=== PATIENT | female | born 1975 | race Caucasian/White ===

== ENCOUNTER 2017-04-26 01:19 | Inpatient (IN) | payer MEDICAID ==
[2017-04-26 01:52] LABS: % BASOPHILS 0.8 % (0.0-2.0); % EOSINOPHILS 1.2 % (0.0-5.0); % LYMPHOCYTES 28.5 % (20.0-50.0); % MONOCYTES 8.3 % (2.0-10.0); % NEUTROPHILS 61.2 % (40.0-80.0); HEMATOCRIT 40.7 % (35.0-45.0); HEMOGLOBIN 13.3 gm/dL (11.7-15.5); MEAN CELL VOLUME 89.2 fl (81-100); MEAN CORPUSCULAR HEMOGLOBIN 29.1 pg (27.0-31.0); MEAN CORPUSCULAR HGB CONC 32.6 pg (28.0-36.0); MEAN PLATELET VOLUME 8.8 fl; NEUTROPHILE ABSOLUTE 5.8 Th/cmm (1.8-8.0); PLATELET COUNT 247 Th/cmm (150-400); RED BLOOD COUNT 4.56 Mil/cmm (3.80-5.10); RED CELL DISTRIBUTION WIDTH 11.9 % (11.5-20.0); WHITE BLOOD COUNT 9.5 Th/cmm (4.8-10.8)
--- NOTE | 2017-04-26 01:57 | ED Physician Chart ---
Chief Complaint/HPI - Patient Information Date Seen:: 04/26/17 Time Seen:: 01:29 Chief Complaint:: palpatations History of Present Illness:: THIS IS A 41 YR OLD FEMALE WHO IS DIABETIC WITH HYPERTENSION AND RESTARTED HER MEDS YESTERDAY. SHE HAS NOT BEEN TAKING CARE OF HERSELF. SHE HAS HAD THIS PROBEMS BEFORE ABOUT FOUR YEARS AGO. SHE DENIES SMOKING, DRINKING AND DRUG ABUSE. SHE HAS BEEN TREATED WITH FLAGYL FOR HER DIARRHEA. THIS PATIENT ALSO HAS HIGH LIPIDS. Allergies:: Allergies Allergy/AdvReac Type Severity Reaction Status Date / Time No Known Allergies Allergy Verified 04/26/17 01:32 Vitals:: Vital Signs - 8 hr 04/26/17 01:20 Temp 97.9 F HR 114 RR 20 BP 98/62 O2 Sat % 100 Historian:: Patient, Family Member (SISTER) Review:: Nurse's Note Reviewed Review of Systems - Review of Systems General/Constitutional: Fever, No chills, Weight loss, No weakness, No diaphoresis, No edema, No loss of appetite Skin: No skin lesions, No rash, No bruising Head: No headache, No light-headedness Eyes: Acuity change, No loss of vision, No pain, No diplopia ENT: No earache, No nasal drainage, No sore throat, No tinnitus Neck: No neck pain, No swelling, No thyromegaly, No stiffness, No mass noted Cardio Vascular: No chest pain, Palpitations, No PND, No orthopnea, No edema Pulmonary: No SOB, No cough, No sputum, No wheezing GI: No nausea, No vomiting, No diarrhea, Pain, No melena, No hematochezia, No constipation, No hematemesis G/U: No dysuria, No frequency, No hematuria Musculoskeletal: Bone or joint pain, No back pain, Muscle pain Endocrine: No polyuria, No polydipsia Psychiatric: No prior psych history, No depression, No anxiety, No suicidal ideation Hematopoietic: No bruising, No lymphadenopathy Allergic/Immuno: No urticaria, No angioedema Neurological: No syncope, No focal symptoms, No weakness, No paresthesia, No headache, No seizure, No dizziness, No confusion, No vertigo Past Medical History - Past Medical History Obtainable: Yes Past Medical History: HTN, DM, Other (CARDIAC DISEASE) Family History: Diabetes Melitus Social History: Non Smoker, No Alcohol, No Drug Use Surgical History: other (BLT) Psychiatricy History: None Medication: Reviewed Physical Exam - Physical Examination General/Constitutional: Awake, Well-developed, well-nourished, Alert, No distress, GCS 15, Non-toxic appearing, Ambulatory Head: Atraumatic Eyes: Lids, conjuctiva normal, PERRL, EOMI Skin: Nl inspection, No rash, No skin lesions, No ecchymosis, Well hydrated, No lymphadenopathy ENMT: External ears, nose nl, Nasal exam nl, Lips, teeth, gums nl Neck: Nontender, Full ROM w/o pain, No JVD, No nuchal rigidity, No bruit, No mass, No stridor Respiratory: Nl effort/Exclusion, Clear to Auscultation, No Wheeze/Rhonchi/Rales Cardio Vascular: RRR, No murmur, gallop, rubs, NL S1 S2 Other Cardio Vascular comments:: FAST HEART RATE (112) GI: No organomegaly, No hernia, Normal BS's, Nondistended, No mass/bruits, No McBurney tenderness Other GI comments:: THERE IS DIFFUSE TENDERNESS OF THE ABDOMEN : No CVA tenderness Extremities: No tenderness or effusion, Full ROM, normal strength in all extremities, No edema, Normal digits & nails Neuro/Psych: Alert/oriented, DTR's symmetric, Normal sensory exam, Normal motor strength, Judgement/insight normal, Mood normal, Normal gait, No focal deficits Misc: normal gait, Normal back, No paraspinal tenderness Labs/Radiology/EKG Results - Radiology Results Results: CHEST X-RAY = NAD - EKG Interpretations EKG Time:: 01:28 Rate & Rhythm: 112 SINUS [place]: RIGHT AXIS Assessment - Assessment General Assessment: PALPATIONS DEHYDRATION DIABETES MELLITUS UNCONTROLLED ED Septic Shock - . Is Septic Shock (SBP<90, OR Lactate>4 mmol\L) present?: No - <6hrs of presentation: Vital Signs: Vital Signs - 8 hr 04/26/17 01:20 Temp 97.9 F HR 114 RR 20 BP 98/62 O2 Sat % 100 Reassessment (Disposition) - Reassessment Reassessment Condition:: Improved - Diagnosis Diagnosis:: UNSTABLE ANGINA DIABETES MELLITUS DEHYDRATION - Patient Disposition Discharge/Transfer:: Acute Care w/in this hosp Admitted to:: Telemetry Admitting Medical Physician:: Bob Johnson Condition at Disposition:: Improved ED Discharge Plan - Patient Disposition Admit/Discharge/Transfer: Acute Care w/in this hosp Condition at Disposition: Improved
[2017-04-26] MEDS ORDERED: Sodium Chloride 0.45% 1,000 ML IV ONE (01:58)
[2017-04-26 02:03] LABS: INR 0.88 (0.5-1.4)
[2017-04-26 02:08] LABS: URINE BILIRUBIN SMALL (NEGATIVE); URINE BLOOD LARGE (NEGATIVE); URINE GLUCOSE (UA) NEGATIVE (NEGATIVE); URINE KETONE TRACE mg/dL (NEGATIVE); URINE PH 5.5 (4.6 - 8.0); URINE PROTEIN 30 mg/dL (NEGATIVE); URINE UROBILINOGEN 0.2 E.U./dL (0.2 - 1.0)
[2017-04-26 02:14] LABS: ALB/GLOB RATIO 1.3 (1.0-1.8); ALKALINE PHOSPHATASE 71 U/L (34-104); ANION GAP 10.2 (7.0-16.0); BILIRUBIN,TOTAL 0.5 mg/dL (0.3-1.0); BUN - UREA NITROGEN 20 mg/dL (7-25); BUN/CREATININE RATIO 28.6; CALCIUM SERUM 10.2 mg/dL (8.6-10.3); CARBON DIOXIDE 26.4 mEq/L (21.0-31.0); CHLORIDE 102 mEq/L (98-107); CREATININE - SERUM 0.7 mg/dL (0.6-1.2); GLUCOSE 254 mg/dL (70-105); POTASSIUM SERUM 3.6 mEq/L (3.5-5.1); SGOT 11 U/L (13-39); SGPT/ALT 14 U/L (7-52); SODIUM SERUM 135 mEq/L (136-145)
[2017-04-26 02:25] LABS: AMPHETAMINE URINE NEGATIVE (NEGATIVE); BARBITURATES URINE NEGATIVE (NEGATIVE); METHADONE URINE NEGATIVE (NEGATIVE)
[2017-04-26 02:26] LABS: BE(B) 2.2 mEq/L (-3.0-3.0); HCO3 26.6 mEq/L (20.0-26.0); pH 7.44 (7.35-7.45)
[2017-04-26 02:27] LABS: ABG SOURCE Arterial; ALLEN TEST P; FIO2 21
[2017-04-26] MEDS ORDERED: Potassium Chloride Elixir 20 mEq /15 mL UDC GT ONE (02:27)
[2017-04-26 02:29] LABS: URINE COLOR YELLOW
[2017-04-26 02:30] LABS: URINE BACTERIA NONE SEEN /hpf (NONE SEEN); URINE EPITHELIAL CELLS NONE SEEN /lpf (FEW); URINE RBC 25-50 /hpf (0-5)
[2017-04-26] MEDS ORDERED: Potassium Chloride Elixir 20 mEq /15 mL UDC ONE (02:50)
[2017-04-26 04:04] VITALS: BP 126/82
[2017-04-26] MEDS: Hydrocodone/APAP 5mg/325mg Tab PO PRN ×2 (05:49→18:51)
[2017-04-26] MEDS: INSULIN ASPART SLIDING SCALE 100 UNITS/ML UNIT SUBQ SCH ×4 (06:37→20:10)
--- NOTE | 2017-04-26 09:16 | Diagnostic Imaging Report ---
Portable chest x-ray Time: 0-15 History: Palpitations Allowing for portable technique the heart size is normal. No focal pulmonary parenchymal processes. No hilar or mediastinal abnormalities. Impression: No acute abnormalities.
--- NOTE | 2017-04-26 12:37 | Consultation ---
DATE OF CONSULTATION: 04/26/[address] Johnson. HISTORY AND PHYSICAL: This is a 41-year-old female patient who has been complaining of palpitation. Following this, the patient came to the Emergency Room. The patient is admitted. No history of PND or orthopnea. PAST MEDICAL HISTORY: Diabetes mellitus type 2. FAMILY HISTORY: Unremarkable. SOCIAL HISTORY: No history of smoking, alcohol abuse. ALLERGIES: No known allergies. PHYSICAL EXAMINATION: VITAL SIGNS: Blood pressure 120/70, pulse 110, respirations 28. HEAD: Normocephalic. No lumps or bumps. EYES: Pupils equal, reactive to light. Fundi show AV nicking. Sclerae white, conjunctivae pink. NECK: Carotid 2+. Normal upstroke. JVD flat. Thyroid not palpable. Lymph nodes not palpable. CHEST: Shows increased AP diameter. No kyphosis, scoliosis. LUNGS: Bilateral bronchovesicular breath sounds. HEART: PMI, fifth intercostal space with lateral to midclavicular line. S1, S2. No S3, S4. Systolic murmur, grade 2/6, lower left sternal border without radiation. ABDOMEN: Soft. Liver and spleen not palpable. No organomegaly. Bowel sounds active. NEUROLOGIC: Unremarkable. EXTREMITIES: Peripheral pulses 2+. No pedal edema. CLINICAL IMPRESSION: Palpitation, supraventricular tachycardia, diabetes mellitus type 2. PLAN: We will add Lopressor to the present regimen. [facility]# [id number]
--- NOTE | 2017-04-26 15:04 | History & Physical ---
ADMIT DATE: 04/26/2017 HISTORY OF PRESENT ILLNESS: A 41-year-old female with past medical history significant for diabetes, hypertension, presents with substernal chest pain. The patient was brought to the Emergency Room. Initial workup was unremarkable; however, given her underlying condition, she was admitted for further treatment and care. The patient is seen in hospital bed. She is awake and alert, states that she is now pain free, but is experiencing some palpitations. Denies any nausea or vomiting. The patient has had diarrhea for some time now and was seen by her primary care physician and was started on Flagyl. PAST MEDICAL HISTORY: The patient has history of diabetes, states that she is typically poorly controlled, had been on insulin, but her primary care physician took her off her insulin because she was not compliant and started her on pills. The patient also has history of hypertension. MEDICATIONS: As per reconciliation. ALLERGIES: No drug allergies. SOCIAL HISTORY: No tobacco, alcohol or illicit drug use. FAMILY HISTORY: Noncontributory. REVIEW OF SYSTEMS: IMMUNOLOGIC: No recurrent infection. CARDIOVASCULAR: No heart disease. The patient does have hypertension. GASTROINTESTINAL: Denies nausea or vomiting. The patient does have diarrhea. ENDOCRINE: The patient has diabetes. No thyroid disorder. NEUROLOGIC: No seizure or stroke. HEMATOLOGIC: No bleeding or clotting disorder. PHYSICAL EXAMINATION: GENERAL: The patient is awake, alert, in no acute distress. VITAL SIGNS: Temperature 97.5, pulse 97, respiration 18, blood pressure 108/73. HEENT: Pupils are equally round, anicteric sclerae. NECK: Supple, no JVD, mass or bruit. LUNGS: Clear to auscultation. HEART: S1, S2 regular, tachycardia. ABDOMEN: Soft and nontender. Positive bowel sounds. EXTREMITIES: No clubbing, cyanosis or edema. NEUROLOGIC: Cranial nerves 2-12 intact. No motor or sensory deficit. LABORATORY DATA: CBC is unremarkable. Sodium is 135, glucose on admission is 254. Troponin is less than 0.01. IMPRESSION: 1. Acute chest pain, rule out myocardial infarction. 2. Diabetes mellitus. 3. Hypertension. 4. Diarrhea. PLAN: Admit to telemetry, rule out IN by serial enzymes. The patient is on Flagyl for her diarrhea, we will continue. We will check stool for C. diff. The patient is seen by Cardiology consult, Dr. Lopez. [facility]# [id number]
--- NOTE | 2017-04-26 23:33 | Admit Criteria Form ---
Admit Criteria Forms - Admit Criteria Diagnosis: TELEMETRY CARE Telemetry Admission Guidelines (Place 'X' for any and all applicable criteria): Admission to telemetry [A] may be indicated for ANY ONE of the following(1)(2)(3 )(4)(5): [X ]I. Cardiac disease, including ANY ONE of the following (9)(10)(11)(12)( 13): [ ]a) Postacute MN [ ]b) Low-risk patients with ST-segment elevation MN who have undergone successful percutaneous coronary intervention [ ]c) Unstable angina [X ]d) Suspected MN (until it is ruled out) [ ]e) Post cardiac surgery (first 48 to 72 hours unless complications occur) [ ]f) Acute arrhythmias (including significant tachycardia or bradycardia) [B] [ ]g) Firing of an implantable cardioverter defibrillator [C] [ ]h) Suspected pacemaker or implantable cardioverter defibrillator malfunction (10) [ ]i) New administration or adjustment of an antiarrhythmic drug [D ] [ ]j) Child admitted for acute congestive heart failure [ ]j) Long QT syndrome [ ]k) Advanced heart block (eg, second-degree Mobitz type II, third- degree heart block) [ ]l) Acute myocarditis or pericarditis [ ]m) Short-term (ambulatory or inpatient) monitoring after a cardiac procedure as indicated by ANY ONE of the following [E]: [ ]i) Electrophysiologic studies [ ]ii) Percutaneous coronary intervention with stent placement [ ]iii) Pacemaker placement with cardiac conduction defect [ ]iv) Implantable cardiac defibrillator placement [ ]II. Drug overdose or poisoning with substance that causes arrhythmias or QT prolongation (eg, phenothiazines, sympathomimetic agents, cyclic antidepressants, digitalis, antiarrhythmic drugs)(15) [ ]III. Short-term (ambulatory or inpatient) monitoring after therapeutic or diagnostic procedure requiring conscious sedation or anesthesia (eg, endoscopy, elective cardioversion) [ ]IV. Acute cerebrovascular even[F](18) [ ]V. Massive blood transfusion (eg, at least 10 units of packed red blood cells in 24 hours) [ ]. Variceal bleeding after endoscopy, sclerotherapy, or IV vasopressin [ ]VII. Uncorrected electrolyte abnormalities associated with an increased risk of dangerous arrhythmia [G]; examples include [ ]a) Hyperkalemia with attributable ECG changes [ ]b) Potassium greater than 6.5 mmol/L (mEq/L) in a patient without history of chronic renal disease [ ]c) Prolonged QT attributed to hypokalemia, hypomagnesemia, or hypocalcemia [ ]VIII.Unexplained syncope or other neurologic event suspected of being due to arrhythmia due to a finding that increases risk; examples include(19)(20)(21): [ ]a) High-risk ECG findings (eg, bifascicular block, bradycardia, abnormal QT interval, ventricular pre- excitation) [ ]b) History of previous syncope due to arrhythmia [ ]c) Abnormal ventricular function (eg, reduced ejection fraction ) [ ]d) Exertional or supine syncope [ ]e) Concerning syncope characteristics (eg, sudden loss of consciousness without prodrome) [ ]f) Family history of sudden [ ]g) Use of arrhythmogenic medication [ ]h) Suspected cardiac ischemia [ ]i) Known channelopathy (eg, long QT syndrome, Brugada syndrome, or catecholaminergic paroxysmal ventricular tachycardia) [ ]j) Known structural heart disease (eg, hypertrophic cardiomyopathy , severe valvular disease) [ ]k) Palpitations preceding syncope The original [employer] content created by [employer] has been revised. The portions of the content which have been revised are identified through the use of italic text or in bold, and [email or web address] [employer] has neither reviewed nor approved the modified material. All other unmodified content is copyright [employer]. Please see references footnoted in the original [employer] edition 2016 Admit Criteria Met?: Yes
[2017-04-27] MEDS: INSULIN ASPART SLIDING SCALE 100 UNITS/ML UNIT SUBQ SCH ×4 (06:53→22:32)
--- NOTE | 2017-04-27 17:02 | General Progress Note ---
Subjective - Review of Systems Subjective: resting in bed has been ambulating denies chest pain c/o headache Objective - Results Result Diagrams: 04/26/17 01:40 04/26/17 01:40 Recent Labs: Laboratory Last Values WBC 9.5 Th/cmm (4.8-10.8) 04/26/17 01:40 RBC 4.56 Mil/cmm (3.80-5.10) 04/26/17 01:40 Hgb 13.3 gm/dL (11.7-15.5) 04/26/17 01:40 Hct 40.7 % (35.0-45.0) 04/26/17 01:40 MCV 89.2 fl (81-100) 04/26/17 01:40 MCH 29.1 pg (27.0-31.0) 04/26/17 01:40 MCHC Differential 32.6 pg (28.0-36.0) 04/26/17 01:40 RDW 11.9 % (11.5-20.0) 04/26/17 01:40 Plt Count 247 Th/cmm (150-400) 04/26/17 01:40 MPV 8.8 fl 04/26/17 01:40 Neutrophils % 61.2 % (40.0-80.0) 04/26/17 01:40 Lymphocytes % 28.5 % (20.0-50.0) 04/26/17 01:40 Monocytes % 8.3 % (2.0-10.0) 04/26/17 01:40 Eosinophils % 1.2 % (0.0-5.0) 04/26/17 01:40 Basophils % 0.8 % (0.0-2.0) 04/26/17 01:40 PT 9.0 SECONDS (9.5-11.5) L 04/26/17 01:40 INR 0.88 (0.5-1.4) 04/26/17 01:40 PTT (Actin FS) 23.4 SECONDS (26.0-38.0) L 04/26/17 01:40 Specimen Source Arterial 04/26/17 01:47 Sample Site Right Radial 04/26/17 01:47 pH 7.44 (7.35-7.45) 04/26/17 01:47 pCO2 39.0 mmHg (35.0-45.0) 04/26/17 01:47 pO2 89.0 mmHg (80.0-100.0) 04/26/17 01:47 HCO3 26.6 mEq/L (20.0-26.0) H 04/26/17 01:47 Base Excess 2.2 mEq/L (-3.0-3.0) 04/26/17 01:47 O2 Saturation 97.0 % (92.0-100.0) 04/26/17 01:47 Zeke Test P 04/26/17 01:47 Vent Rate NA 04/26/17 01:47 Inspired O2 21 04/26/17 01:47 Tidal Volume NA 04/26/17 01:47 PEEP NA 04/26/17 01:47 Pressure (ins/psv/peep) NA 04/26/17 01:47 Critical Value RPINEIRA 04/26/17 01:47 Sodium 135 mEq/L (136-145) L 04/26/17 01:40 Potassium 3.6 mEq/L (3.5-5.1) 04/26/17 01:40 Chloride 102 mEq/L (98-107) 04/26/17 01:40 Carbon Dioxide 26.4 mEq/L (21.0-31.0) 04/26/17 01:40 Anion Gap 10.2 (7.0-16.0) 04/26/17 01:40 BUN 20 mg/dL (7-25) 04/26/17 01:40 Creatinine 0.7 mg/dL (0.6-1.2) 04/26/17 01:40 Est GFR ( Amer) > 60.0 ml/min (>90) 04/26/17 01:40 Est GFR (Non-Af Amer) > 60.0 ml/min 04/26/17 01:40 BUN/Creatinine Ratio 28.6 04/26/17 01:40 Glucose 254 mg/dL (70-105) H 04/26/17 01:40 POC Glucose 235 MG/DL (70 - 105) H 04/27/17 11:48 Hemoglobin A1c % 11.3 % (4.0-6.0) H 04/26/17 01:50 Calcium 10.2 mg/dL (8.6-10.3) 04/26/17 01:40 Total Bilirubin 0.5 mg/dL (0.3-1.0) 04/26/17 01:40 AST 11 U/L (13-39) L 04/26/17 01:40 ALT 14 U/L (7-52) 04/26/17 01:40 Alkaline Phosphatase 71 U/L (34-104) 04/26/17 01:40 Creatine Kinase 28 U/L (30-223) L 04/26/17 01:40 Troponin I < 0.01 ng/mL (0.01-0.05) L 04/26/17 07:07 B-Natriuretic Peptide < 5.0 pg/mL (5.0-100.0) L 04/26/17 01:50 Total Protein 7.9 gm/dL (6.0-8.3) 04/26/17 01:40 Albumin 4.4 gm/dL (3.7-5.3) 04/26/17 01:40 Globulin 3.5 gm/dL 04/26/17 01:40 Albumin/Globulin Ratio 1.3 (1.0-1.8) 04/26/17 01:40 Urine Source MIDSTREAM 04/26/17 01:50 Urine Color YELLOW 04/26/17 01:50 Urine Clarity HAZY (CLEAR) 04/26/17 01:50 Urine pH 5.5 (4.6 - 8.0) 04/26/17 01:50 Ur Specific [place] 1.025 (1.005-1.030) 04/26/17 01:50 Urine Protein 30 mg/dL (NEGATIVE) H 04/26/17 01:50 Urine Glucose (UA) NEGATIVE mg/dL (NEGATIVE) 04/26/17 01:50 Urine Ketones TRACE mg/dL (NEGATIVE) 04/26/17 01:50 Urine Blood LARGE (NEGATIVE) H 04/26/17 01:50 Urine Nitrate NEGATIVE (NEGATIVE) 04/26/17 01:50 Urine Bilirubin SMALL (NEGATIVE) H 04/26/17 01:50 Urine Urobilinogen 0.2 E.U./dL (0.2 - 1.0) 04/26/17 01:50 Ur Leukocyte Esterase TRACE (NEGATIVE) H 04/26/17 01:50 Urine RBC 25-50 /hpf (0-5) H 04/26/17 01:50 Urine WBC 2-5 /hpf (0-5) 04/26/17 01:50 Ur Epithelial Cells NONE SEEN /lpf (FEW) 04/26/17 01:50 Urine Bacteria NONE SEEN /hpf (NONE SEEN) 04/26/17 01:50 Urine Test NEGATIVE 04/26/17 01:50 Urine Opiates Screen NEGATIVE (NEGATIVE) 04/26/17 01:50 Urine Methadone Screen NEGATIVE (NEGATIVE) 04/26/17 01:50 Ur Barbiturates Screen NEGATIVE (NEGATIVE) 04/26/17 01:50 Ur Tricyclics Screen NEGATIVE (NEGATIVE) 04/26/17 01:50 Ur Phencyclidine Scrn NEGATIVE (NEGATIVE) 04/26/17 01:50 Amphetamines Screen NEGATIVE (NEGATIVE) 04/26/17 01:50 U Methamphetamines Scrn NEGATIVE (NEGATIVE) 04/26/17 01:50 U Benzodiazepines Scrn NEGATIVE (NEGATIVE) 04/26/17 01:50 U Cocaine Metab Screen NEGATIVE (NEGATIVE) 04/26/17 01:50 U Cannabinoids Screen NEGATIVE (NEGATIVE) 04/26/17 01:50 - Physical Exam Vitals and I&O: Vital Signs Temp 99.6 F 04/27/17 16:23 Pulse 105 04/27/17 16:54 Resp 18 04/27/17 16:23 BP 103/75 04/27/17 16:54 Pulse Ox 98 04/27/17 16:23 Intake & Output 04/26/17 04/27/17 04/27/17 18:59 06:59 18:59 Intake Total 1850 400 Output Total 2 Balance 1850 398 Weight (lbs) 53.552 kg 53.796 kg Intake: Oral 1850 400 Output: Urine 2 Other: # Voids 5 # Bowel Movements 1 Stool Characteristics Soft Soft Soft Active Medications: Current Medications Acetaminophen/Hydrocodone Bitart ([place] 5mg/325mg) 1 tab PO Q6H PRN PRN Reason: PAIN Stop: 06/25/17 05:36 Last Admin: 04/26/17 18:51 Dose: 1 tab Benazepril HCl (Lotensin) 5 mg PO DAILY CHELSY Stop: 06/25/17 08:59 Last Admin: 04/27/17 08:17 Dose: Not Given Diltiazem HCl (Cardizem) 60 mg PO Q8HR [place]LS[place] Stop: 06/26/17 20:59 Glipizide (Glucotrol) 5 mg PO BID [facility] Stop: 06/25/17 08:59 Last Admin: 04/27/17 16:53 Dose: 5 mg Insulin Aspart (Novolog Insulin Sliding Scale) 0 units SUBQ ACHS CHELSY PRN Reason: Protocol Stop: 06/25/17 07:29 Last Admin: 04/27/17 12:39 Dose: 4 units Metformin HCl (Glucophage) 500 mg PO BIDWM [facility] Stop: 06/25/17 07:59 Last Admin: 04/27/17 08:16 Dose: 500 mg Metoprolol Tartrate (Lopressor) 25 mg PO BID [facility] Stop: 06/25/17 08:59 Last Admin: 04/27/17 16:54 Dose: 25 mg Metronidazole (Flagyl) 500 mg PO Q8HR [facility] Stop: 06/25/17 08:59 Last Admin: 04/27/17 15:10 Dose: 500 mg Nitroglycerin (Nitrostat) 0.4 mg SL Q5MIN PRN PRN Reason: Chest Pain Stop: 06/25/17 03:27 Ondansetron HCl (Zofran) 4 mg IV Q6H PRN PRN Reason: Nausea / Vomiting Stop: 06/25/17 19:10 Assessment/Plan - Assessment Assessment: cardiac arrhythmia dm htn - Plan Plan: cont current treatment encouraged to walk regularly Nutritional Asmnt/Malnutr-PDOC - Dietary Evaluation Malnutrition Findings (Please click <Entered> for more info): Nutritional Asmnt/Malnutrition Start: 04/26/17 14: 16 Text: Status: Complete Freq: Document 04/26/17 14:17 MORENO (Rec: 04/26/17 14:26 MORENO MONTEMAYOR- [email or web address]) Nutritional Asmnt/Malnutrition Patient General Information Nutritional Screening High Risk Screening Diagnosis Reason for visit: Chest pain Pertinent Medical Hx/Surgical Hx Diabetes, hypertension Subjective Information Per H&P, patient with poorly controlled DM and non- compliance with DM medication regimen. Current Diet Order/ Nutrition Support Cardiac, 60 gm CCHO Patient / S.O Indicated Pertinent Medications glipizide, metformin, novolog, flagyl Pertinent Labs HGA1C 11.3, glucose 193-274 Nutritional Hx/Data Height 1.63 m Height (Calculated Centimeters) 162.6 Current Weight (lbs) 53.524 kg Weight (Calculated Kilograms) 53.5 Weight (Calculated Grams) 31418.9 [place] Body Weight 130 % [place] Body Weight 90 Recent Weight Change No Weight Status Approriate GI Symptoms GI Symptoms None Food Allergies No Cultural/Ethnic/[place] Belief None indicated Usual diet at home Regular Skin Integrity/Comment: Efren 21, intact Current %PO Negligible < 25% Estimated Nutritional Goals BEE in Kcals: Adj wt of IBW Calories/Kcals/Kg 25-30kcal/kg (IBW 59kg) Kcals Calculated ~8183-6044 kcal/day Protein: Adj wt of IBW Protein g/kg: .8-1 gm/kg Protein Calculated 50-60 gm/day Fluid: ml ~0945-9253 ml/day (1 ml/kcal) Nutritional Problem 2. Problem Problem Nutritino related knowledge deficit related to Etiology lack of previous education on DM diet Signs/Symptoms: aeb unable to recognize portion sizes, meal compositions for DM diet 1. Problem Problem Altered nutrition related lab values related to Etiology uncontrolled hyperglycemia aeb Signs/Symptoms: HGA1C 11.3, blood glucose 193- 274 Intervention/Recommendation Recommendations by RD Dietary Education by RD1 Comments 1. Continue current diet order as tolerated by patient. 2. MD to modify insulin regimen as needed for optimal glycemic control. 3. Provided with Diabetes diet education and handouts. Expected Outcomes/Goals Expected Outcomes/Goals Glucose normalizes, weight remains stable or trends toward IBW, oral intake to meet >75% of nutrient needs
[2017-04-27] MEDS: Hydrocodone/APAP 5mg/325mg Tab PO PRN (17:08)
[2017-04-27] MEDS: Diltiazem 30 mg Tab PO SCH (21:34)
[2017-04-28 06:26] LABS: % MONOCYTES 6.1 % (2.0-10.0); % NEUTROPHILS 61.9 % (40.0-80.0); HEMATOCRIT 38.4 % (35.0-45.0); MEAN CELL VOLUME 87.9 fl (81-100); MEAN CORPUSCULAR HEMOGLOBIN 29.7 pg (27.0-31.0); MEAN CORPUSCULAR HGB CONC 33.8 pg (28.0-36.0); MEAN PLATELET VOLUME 9.1 fl; NEUTROPHILE ABSOLUTE 5.4 Th/cmm (1.8-8.0); PLATELET COUNT 215 Th/cmm (150-400); RED BLOOD COUNT 4.36 Mil/cmm (3.80-5.10); RED CELL DISTRIBUTION WIDTH 11.9 % (11.5-20.0); WHITE BLOOD COUNT 8.7 Th/cmm (4.8-10.8)
[2017-04-28 06:39] LABS: BUN - UREA NITROGEN 12 mg/dL (7-25); CALCIUM SERUM 9.3 mg/dL (8.6-10.3); CARBON DIOXIDE 25.7 mEq/L (21.0-31.0); CHLORIDE 106 mEq/L (98-107); CREATININE - SERUM 0.5 mg/dL (0.6-1.2); GLUCOSE 103 mg/dL (70-105); POTASSIUM SERUM 3.7 mEq/L (3.5-5.1); SODIUM SERUM 137 mEq/L (136-145)
[2017-04-28] MEDS: INSULIN ASPART SLIDING SCALE 100 UNITS/ML UNIT SUBQ SCH ×3 (07:12→18:06)
[2017-04-28] MEDS: Diltiazem 30 mg Tab PO SCH ×2 (07:13→15:13)
--- NOTE | 2017-04-28 21:55 | Discharge Summary ---
DATE OF DISCHARGE: 04/28/2017 FINAL DIAGNOSES: 1. Chest pain secondary to acute costochondritis. 2. Hypertension. 3. Diabetes mellitus. 4. Diarrhea. REVIEW OF HISTORY: The patient is a 41-year-old female with long history of diabetes mellitus, hypertension, who presented to the Emergency Room with chest pain, evaluated by the ER physician, admitted to telemetry. Cardiac consultation obtained. No fever, no chills, no nausea, no vomiting. PHYSICAL EXAMINATION: CHEST: Clear to auscultation. ABDOMEN: Soft, bowel sounds positive. EXTREMITIES: No edema. DISCHARGE MEDICATIONS: The patient will resume her medication and diet. COURSE OF HOSPITALIZATION: During this hospitalization, the patient was seen by first responder and the patient remained stable clinically. On the 04/28/2017, the patient was feeling well. No nausea, no vomiting, no abdominal pain, no diarrhea. The patient was cleared by first responder. Chest was clear to auscultation. Abdomen was soft, bowel sounds positive. DISPOSITION: The patient was discharged home. Follow up with primary physician next week. CONDITION ON DISCHARGE: Stable. MEDICATIONS: Follow discharge reconciliation. [facility]# [id number]
== END 2017-04-28 20:15 | disposition home or self-care (01) | DRG 203 ==
LOC: ER 01:19 → TELE 02:40
PROVIDERS: ADMIT Family Medicine; ATTEND Family Medicine
DX: M94.0 Chondrocostal junction syndrome [Tietze] (principal); I10 Essential (primary) hypertension; I47.1 Supraventricular tachycardia; E11.9 Type 2 diabetes mellitus without complications; R19.7 Diarrhea, unspecified; I20.0 Unstable angina; Z83.3 Family history of diabetes mellitus
CPT/HCPCS: 36415-UA; 71010-TC; 80048-TC; 80053-TC; 80307; 81001-TC; 81025-TC; 82550-TC; 82803-TC; 82948-90; 83036-90; 83880-TC; 84484-TC; 85025-TC; 85610-TC; 85730-TC; 87230-TC; 93005; J1815; J2405; Z7610